=== PATIENT | female | born 1965 | race Caucasian/White ===

== ENCOUNTER → 2017-04-12 | Outpatient (CLI) | payer OTHER ==
[~2017-04-12] MED LIST: ASPIRIN ENTERI325 M1 PO; BAYER ASPIRIN325 M1 PO; FLEXERIL10 MG PO; LEXAPRO20 MG PO; LORCET 5-325 M1 EACH PO; MELOXICAM15 MG PO; MOBIC15 MG PO; NEURONTIN100 MG PO; NEURONTIN300 MG PO; PERCOCET 7.5-31 EACH PO; PERCOCET 7.5/321 TAB PO; PERCOCET5/325 PO; PHENERGAN25 MG PO; PRAVASTATIN SOD10 MG PO; PRAVASTATIN SOD20 MG PO
--- NOTE | ~2017-04-12 | EKG ---
PATIENT: EDIE ALONZO UNIT #: [id number] Ventricular Rate: 62 BPM Atrial Rate: 62 BPM P-R Interval: 142 ms QRS Duration: 84 ms Q-T Interval: 402 ms QTC Calculation(Bezet): 408 ms P Prosper: 73 degrees Calculated R Prosper: -19 degrees Calculated T Prosper: 62 degrees Diagnosis Line: Normal sinus rhythm Diagnosis Line: Possible Left atrial enlargement Diagnosis Line: Anterior infarct (cited on or before 06-OCT-2016) Diagnosis Line: Abnormal ECG Diagnosis Line: When compared with ECG of 06-OCT-2016 13:27, Diagnosis Line: No significant change was found Diagnosis Line: Confirmed by JESU PITTS MD ([id number]) on 04/13/2017 Diagnosis Line: 7:35:47 PM INTERPRETING MD: GISSELLE LARA
--- NOTE | ~2017-04-12 | CR172 ---
[facility] A Service of [facility] & [facility] RADIOLOGY TEXT RESULTS PATIENT: EDIE ALONZO LOCATION: [facility] : 65 UNIT #: [id number] AGE: [address]: Kobe Mi MD SEX: F ORDER DR: [id number] [facility] [address] [facility]. [place], [place] [address] [id number] O MR#: [id number] Acc #: [id number] NAME: EDIE ALONZO : 1965 SEX: F STUDY DATE/TIME: 04/12/2017 11:13 UNIT: [facility] ROOM: STUDY DESCRIPTION: CR Knee 3 Views Lt Attending Physician: Kobe Mi M.D. Referring Physician: Kobe Mi M.D. Ordering Physician: Kobe Mi M.D. Primary Care Physician: Ishan Cochran Aprn MEDICAL IMAGING REPORT This report is preliminary unless electronic signature is present EXAM Left knee 3 views 04/12/2017 HISTORY Left knee pain for 1 month, preop left medial knee uniarthroplasty. FINDINGS 3 views of the left knee demonstrate no fracture. There is marked narrowing of the medial compartment of the left knee on the standing AP view with moderate narrowing of the lateral compartment. Small osteophytes are seen along the posterior aspect of the patella. There is no joint effusion. IMPRESSION Degenerative change involving the left knee. No acute abnormality. Dictated by... Almas Salazar M.D. THIS IS AN ELECTRONICALLY VERIFIED REPORT Almas Salazar M.D. at 04/13/2017 7:35 AM JN/kylah TD: 04/12/2017 15:01 JOB #: [id number] MEDICAL IMAGING REPORT Page 1 of 1 COPY
[2017-04-12 10:27] LABS: URINE APPEARANCE CLEAR; URINE BILIRUBIN NEG (NEG); URINE BLOOD NEG (NEG); URINE COLOR YELLOW; URINE GLUCOSE NEG (NEG); URINE KETONE NEG (NEG); URINE LEUKOCYTE ESTERASE NEG (NEG); URINE NITRATE NEG (NEG); URINE PH 6.5 (5-8); URINE PROTEIN NEG (NEG); URINE SPECIFIC GRAVITY 1.011 (1.003-1.035); URINE UROBILINOGEN 0.2 MG/DL (NEG)
[2017-04-12 10:28] LABS: HEMATOCRIT 42.3 % (35.0-45.0); HEMOGLOBIN 14.1 gm/dL (12.0-16.0); MEAN CELL VOLUME 90.4 FL (83-96); MEAN CORPUSCULAR HEMOGLOBIN 30.2 PG (28-34); MEAN CORPUSCULAR HGB CONC 33.4 g/dL (30-36); MEAN PLATELET VOLUME 8.2 FL (6.5-11.5); RED BLOOD COUNT 4.68 X10e (3.90-5.30); WHITE BLOOD COUNT 9.5 X10e3 (4.0-10.5)
[2017-04-12 10:30] LABS: URINE SOURCE CLEAN CATCH
[2017-04-12 10:31] LABS: CULTURE INDICATED? NO
[2017-04-12 11:11] LABS: CALCIUM SERUM 9.2 mg/dL (8.4-10.2); GLOM FILT RATE Estimated 65.2 mL/min (>60); POTASSIUM 4.7 mmol/L (3.5-5.1)
[2017-04-12 11:35] LABS: INR 0.9; PROTHROMBIN TIME (PATIENT) 10.3 SECONDS (10.0-11.7)
== END | disposition home or self-care (01) ==
LOC: CAMB 04-05 10:00
PROVIDERS: Orthopaedic Surgery
DX: Z01.818 Encounter for other preprocedural examination (principal); M17.12 Unilateral primary osteoarthritis, left knee
CPT/HCPCS: 36415; 73562; 80048; 81003; 85027; 85610; 86850; 86900; 86901; 87070; 93005

== ENCOUNTER 2017-04-19 05:31 | Inpatient (IN) | payer OTHER ==
[~2017-04-19] VITALS: Ht 157.5 cm; Wt 49.3 kg
--- NOTE | ~2017-04-19 | DS ---
Unit #: [id number] #: [id number] Patient: EDIE ALONZO [id number] [address] [address] [id number] I MR#: [id number] NAME: EDIE ALONZO ROOM: [facility] Age: 51 Sex: F Admission Date: 04/19/2017 : 1965 Discharge Date: Attending Physician: Kobe Mi M.D. Primary Care Physician: Ishan Cochran Aprn DISCHARGE SUMMARY DISCHARGE DIAGNOSES Left knee medial compartment osteoarthritis, status post unicompartmental arthroplasty. CONSULTANTS Physical therapy. DISCHARGE MEDICATIONS Patient will restart all of her home medications includin. Aspirin 325 mg p.o. daily for six weeks for DVT prophylaxis. 2. She will also be changed to Percocet 7.5 mg/325 mg 1-2 tabs p.o. q.4 hours p.r.n. pain. DETAILS OF HOSPITAL STAY Patient underwent unicompartmental knee arthroplasty on 04/19/2017. She worked well with physical therapy. She was admitted. She stayed overnight and in the morning her vital signs and labs were stable. Pain was controlled. She wished to be discharged to home. She received Lovenox. DISPOSITION Home. DISCHARGE INSTRUCTIONS 1. Patient will leave the left knee dressing on until followup. She can shower and get it wet. 2. She will have home physical therapy. She will work on range of motion and ambulating. 3. She will take aspirin 325 mg p.o. daily for six weeks for DVT prophylaxis. 4. Call the office with any questions or concerns. She will let us know if she has any shortness of breath, fever, or other medical changes. 5. She will followup as scheduled in 10-14 days. Dictated by... Kobe Mi M.D. DUANE/kathia TD: 04/20/2017 09:50 JOB #: [id number] Unit #: [id number] #: [id number] Patient: EDIE ALONZO DISCHARGE SUMMARY Page 1 of 1 X X DISCHARGE SUMMARY
--- NOTE | ~2017-04-19 | OR ---
Unit #: [id number] #: [id number] Patient: EDIE ALONZO [id number] [address] [place], [place] [address] [id number] I MR#: [id number] NAME: EDIE ALONZO ROOM: 454 Date of Procedure: 04/19/2017 Admission Date: 04/19/2017 Surgeon: Kobe Mi M.D. : 1965 Attending Physician: Kobe Mi M.D. Primary Care Physician: Ishan Cochran Aprn OPERATIVE REPORT PREOPERATIVE DIAGNOSIS Left knee medial compartment osteoarthritis. POSTOPERATIVE DIAGNOSIS Left knee medial compartment osteoarthritis. PROCEDURE PERFORMED Left knee medial unicompartmental knee arthroplasty. RAG WASHER Miguel A Carrero CFA. ANESTHESIA General with LMA. COMPLICATIONS None. SPECIMENS None. DRAINS None. SURGICAL IMPLANTS Aurora medial unicompartmental arthroplasty system. 1. Size A tibial tray. 2. Size small femoral component. 3. 4 mm polyethylene insert. 4. Palacos R+G cement. INDICATION FOR PROCEDURE Ms. Alonzo is a pleasant 51-year-old female with advanced pqgk-sy-aluc medial compartment arthritis of the left knee. The patient failed conservative treatment including cortisone injections, anti-inflammatories, pain medication, and activity modification. The patient had done well with the total knee arthroplasty on the right side. She wished to proceed with surgery on the left knee. Based on her arthritis pattern, it was felt that an unicompartmental knee arthroplasty would best provide her the relief for the knee. Risks, benefits, and alternatives of surgery were discussed with the patient. Informed consent was obtained. Risks include, but not limited to, infection, bleeding, Unit #: [id number] #: [id number] Patient: EDIE ALONZO nerve injury, blood clots, risks associated with anesthesia, need for further surgery, and possibly . DESCRIPTION OF PROCEDURE On 04/19/2017, the patient was seen in preoperative holding area, where her surgical site was marked. Preoperative antibiotics were received. H and P and consent updated. Preoperative block performed. The patient was taken to the operating room and provided general anesthesia. Left thigh high tourniquet placed. Left leg placed in the Aurora leg lomax. It was then prepped and draped in typical sterile fashion. Time-out was performed confirming the correct surgical site and procedure. At this point, leg was exsanguinated and tourniquet inflated to 250 mmHg. Longitudinal incision was made along the medial border of the patella extending from the VMO down distally to the tubercle. Incision was taken down through the skin and subcutaneous tissues. Medial parapatellar arthrotomy was performed. Patella subluxed laterally. Retractors were placed. Medial meniscus removed. Protection of the ligaments noted. ACL and MCL intact. Classic anterior medial arthritis pattern noted at the medial compartment that was correctable. At this point, the tibial resection was performed. The guide was placed with careful attention to varus valgus, height, and slope. Using the guide, it was pinned in place with a single pin. The resection was made in standard fashion. It was checked on the back table and noted to fit size A tibia. Next, focus was placed on the femur. Also of note, careful attention was placed when making the saw cuts not to over cut the bone. Next, the femoral alignment hole was placed along the lateral aspect of the medial femoral condyle even with the trochlea. This was along the lateral border of the medial femoral condyle. The femoral guide was then placed. It was clamped and attached to the intramedullary canal. A brittanie was placed along the medial femoral condyle longitudinally. The holes were lined up. The two PEG holes were drilled. Next, the first milling was performed in the medial femoral condyle. Excess osteophytes were removed. Gaps were checked. It was felt that the 3 mm fit on the flexion and 0 on the extension. 3 more was cut using the milling device. Again, it was checked. It was felt to be still tight in extension. Two more millimeters were taken. Once this was complete, it was felt to be balanced with the 4 mm spoons in both flexion and extension. Posterior osteophytes were removed. Anterior milling performed as well to prevent the impingement. The trial femur was placed again with the tibial tray. It was checked with the trial inserts. It was felt to be appropriate. The tibial cutting jig was placed. The saw was used to cut the notch for the keel. It was smoothed out. Next, the tibial trial was placed again with the keel along with the femur. Trial insert was placed with a 3 and 4. Once this was complete, all instruments were removed. Drill holes were made in the femur for the cement interdigitation. The cement was then mixed on the back table. The wound was thoroughly irrigated and suction dried. Cement was placed on the tibia followed by placement of the tibial tray. It was impacted. Excess cement removed. In similar fashion, the femur was placed. Excess cement removed. A 4 mm paddle was placed and the leg was extended. After approximately 12 minutes, the cement had hardened. Excess cement removed from the knee that was hardened. The trial 3 mm and 4 mm insert was placed. The 4 mm insert restored the kinematics in the knee with excellent range of motion. Full extension and flexion noted with no lifting off or spin out of the insert. The knee had physiologic balancing noted. At this point, the final polyethylene insert was placed. The knee was cycled. It was noted to be secured. The remainder of the 3 L normal saline with bacitracin pulsed through the wound. The tourniquet was released just past 90 minutes. Hemostasis was achieved. Arthrotomy was Unit #: [id number] #: [id number] Patient: EDIE ALONZO closed with #1 Vicryl suture followed by 2-0 Vicryl for subcutaneous tissues and a running 3-0 Monocryl subcuticular stitch for skin. Dermabond, Telfa, and Tegaderm were placed. The patient did receive tranexamic acid along with the Dermabond, Telfa, Tegaderm, and Cristian bandage was placed. The patient was subsequently awakened from general anesthesia and taken to PACU postoperatively in stable condition. POSTOPERATIVE PLAN The patient will be admitted. She had pain control. She will work with physical therapy. Periarticular joint injection was used around the knee joint to aid in pain control. The patient will be on Lovenox for DVT prophylaxis and transitioned to aspirin upon discharge for 6 weeks. She will also be on 24-hour antibiotic protocol. No complications were encountered during the surgical procedure. Dictated by... Kobe Mi M.D. DUANE/rachana TD: 04/19/2017 14:30 JOB #: [id number] OPERATIVE REPORT Page 1 of 1 X X PROCEDURE OPERATIVE NOTE
--- NOTE | ~2017-04-19 | CR169 ---
[facility] A Service of [facility] & [facility] RADIOLOGY TEXT RESULTS PATIENT: EDIE ALONZO LOCATION: [facility] 454[facility]01 : [birth year] UNIT #: [id number] AGE: [address]: Kobe Mi MD SEX: F ORDER DR: [id number] [facility] [address] [facility]. [place], [place] [address] [id number] MR#: [id number] Acc #: [id number] NAME: EDIE ALONZO : 1965 SEX: F STUDY DATE/TIME: 04/19/2017 1032 UNIT: [facility] ROOM: [facility] STUDY DESCRIPTION: CR Knee 2 Views Lt Attending Physician: Kobe Mi M.D. Ordering Physician: Kobe Mi M.D. Primary Care Physician: Ishan Cochran Aprn MEDICAL IMAGING REPORT This report is preliminary unless electronic signature is present EXAM Left knee, 2 views, 04/19/2017, 1032 hours. CLINICAL HISTORY Knee pain, postop knee replacement. COMPARISON 04/12/2017 FINDINGS AP and cross-table lateral view demonstrate medial compartment joint space replacement with anatomic alignment. There is a small effusion in the suprapatellar bursa. No fracture. IMPRESSION Postop medial compartment joint space replacement with anatomic alignment. No fracture seen. Dictated by... Thania Metcalf M.D. THIS IS AN ELECTRONICALLY VERIFIED REPORT Thania Metcalf M.D. at 04/19/2017 6:57 PM PILLO/mervat TD: 04/19/2017 16:03 JOB #: [id number] MEDICAL IMAGING REPORT Page 1 of 1 COPY
[~2017-04-19 05:31] MED LIST changes: -ASPIRIN ENTERI325 M1 PO; -MELOXICAM15 MG PO; -NEURONTIN300 MG PO; -PERCOCET 7.5-31 EACH PO; -PERCOCET5/325 PO; -PHENERGAN25 MG PO; -PRAVASTATIN SOD20 MG PO
[2017-04-19] MEDS ORDERED: MELOXICAM15 MG PO (10:48)
[2017-04-19] MEDS ORDERED: LEXAPRO20 MG PO (10:48)
[2017-04-19] MEDS ORDERED: FLEXERIL10 MG PO (10:48)
[2017-04-19] MEDS ORDERED: PRAVASTATIN SOD20 MG PO (10:49)
[2017-04-19] MEDS ORDERED: NEURONTIN300 MG PO (10:49)
[2017-04-19] MEDS ORDERED: PERCOCET5/325 PO (10:50)
[2017-04-20 03:09] LABS: HEMATOCRIT 40.5 % (35.0-45.0); HEMOGLOBIN 13.4 gm/dL (12.0-16.0); MEAN CELL VOLUME 90.6 FL (83-96); MEAN CORPUSCULAR HEMOGLOBIN 29.9 PG (28-34); MEAN CORPUSCULAR HGB CONC 33.1 g/dL (30-36); MEAN PLATELET VOLUME 8.4 FL (6.5-11.5); RED BLOOD COUNT 4.47 X10e (3.90-5.30); RED CELL DISTRIBUTION WIDTH 15.2 % (11.0-15.5); WHITE BLOOD COUNT 14.1 X10e3 (4.0-10.5)
[2017-04-20 03:45] LABS: CALCIUM SERUM 9.4 mg/dL (8.4-10.2); CREATININE SERUM 0.8 mg/dL (0.6-1.4); GLOM FILT RATE Estimated 85.4 mL/min (>60); POTASSIUM 4.1 mmol/L (3.5-5.1)
[2017-04-20] MEDS ORDERED: PERCOCET 7.5-31 EACH PO (09:09)
[2017-04-20] MEDS ORDERED: ASPIRIN ENTERI325 M1 PO (09:11)
[2017-04-20] MEDS ORDERED: PHENERGAN25 MG PO (09:13)
== END 2017-04-20 11:10 | disposition home health service (06) | DRG 470 ==
LOC: CSUR 05:31 → CPACUOF 07:05 → CSUR 07:30 → CPACUOF 10:21 → CSUR 10:21 → CPACUOF 11:52 → C4B 11:52
PROVIDERS: Orthopaedic Surgery
PROC: 0SRD0J9 Replacement of Left Knee Joint with Synthetic Substitute, Cemented, Open Approach (ICD-10-PCS; principal; 2017-04-19 07:30)
DX: M17.12 Unilateral primary osteoarthritis, left knee (principal); F17.210 Nicotine dependence, cigarettes, uncomplicated; E78.00 Pure hypercholesterolemia, unspecified
CPT/HCPCS: 73560; 80048; 85027; 97110; 97116; 97161; 97530; C1776; G8978-GP; G8979-GP; G8980-GP; J0171; J0690; J0735; J1170; J1650; J1885; J2250; J2270; J2370; J2405; J2550; J2795; J3010